=== PATIENT | male | born 1980 | race Two or more races ===

== ENCOUNTER 2023-01-21 11:50 | Emergency (ER) | payer OTHER ==
[~2023-01-21] VITALS: Ht 180.3 cm; Wt 158.8 kg
[2023-01-21 11:53] VITALS: BP 151/91; RESP 20; O2SAT 97
[2023-01-21] MEDS ORDERED: SODIUM CHLORIDE 0.9% 1,000 ML IVB ONE (12:00)
[2023-01-21 12:21] VITALS: PULSE 104
== END 2023-01-21 12:40 | disposition left against medical advice (07) ==
LOC: EDBD 11:50 → ER 11:50
DX: F15.10 Other stimulant abuse, uncomplicated (principal); I10 Essential (primary) hypertension; F17.210 Nicotine dependence, cigarettes, uncomplicated
CPT/HCPCS: 93005; 99283; J7030

== ENCOUNTER 2024-01-29 18:48 | Emergency (ER) | payer SELFPAY | END 2024-01-29 20:58 | disposition left against medical advice (07) | LOC: ER 18:48 | DX: L02.91 Cutaneous abscess, unspecified (principal); Z53.21 Procedure and treatment not carried out due to patient leaving prior to being seen by health care provider ==

== ENCOUNTER 2024-01-31 14:25 | Inpatient (IN) | payer MEDICAID, OTHER ==
[~2024-01-31] VITALS: Ht 180.3 cm; Wt 133.6 kg
[2024-01-31] MEDS: SODIUM CHLORIDE 0.9% 1,000 ML IV ONE ×2 (16:10→19:31)
[2024-01-31] MEDS: cefTRIAXone 1GM/50ML D5W 50 ML IV ONE (16:20)
[2024-01-31] MEDS: HYDROcodone-ACET 10/325MG TAB PO ONE (16:37)
[2024-01-31 16:39] LABS: Basophils # (auto) 0.1 10 ^3/uL (0-0.2); Basophils % (auto) 0.6 % (0.0-2.0); Eosinophils # (auto) 0.3 10 ^3/uL (0-0.8); Hematocrit 45.2 % (41.0-53.0); Hemoglobin 15.9 g/dL (13.5-17.5); Lymphocytes # (auto) 2.2 10 ^3/uL (0.4-5.4); Mean Corpuscular Hemoglobin 30.2 pg (28.0-32.0); Mean Corpuscular Hgb Conc. 35.3 g/dL (32.0-36.0); Mean Corpuscular Volume 85.5 fL (80.0-100.0); Monocytes # (auto) 0.9 10 ^3/uL (0-1.3); Monocytes % (auto) 9.6 % (0.0-12.0); Neutrophils # (auto) 6.1 10 ^3/uL (1.6-8.6); Neutrophils % (auto) 63.8 % (37.0-80.0); Nucleated Red Blood Cells % 0.1 %; Platelet Count (auto) 292 10^3/uL (140-450); Red Blood Cells 5.29 10^6/uL (4.5-5.90); Red Cell Distribution Width 13.4 % (11.8-14.3); White Blood Cell 9.6 10^3/uL (4.4-10.8)
[2024-01-31 16:45] LABS: Chloride 94 mmol/L (98-107); Potassium 4.1 mmol/L (3.5-5.1); Sodium 127 mmol/L (136-145)
[2024-01-31 16:46] LABS: Anion Gap 6 (5-15); Carbon Dioxide 27 mmol/L (20-31)
[2024-01-31 16:47] LABS: Calcium 9.5 mg/dL (8.7-10.4)
[2024-01-31 16:52] LABS: BUN/Creatinine Ratio 9.4 (10.0-20.0); Blood Urea Nitrogen 10 mg/dL (9-23)
[2024-01-31 16:57] LABS: Glucose 508 mg/dL (74-106)
[2024-01-31] MEDS: InsuLIN REG 1unit/0.01ml Soln (100units/ml) SC ONE (17:10)
[2024-01-31] MEDS: TETANUS-DIPTH-ACEL PERTUSSIS 0.5ML SYR Tdap IM ONE (17:10)
[2024-01-31] MEDS: IOHEXOL 300 MG/ML 100ML BOTTLE IJ ONE (17:56)
[2024-01-31 18:22] VITALS: PULSE 105; RESP 17; O2SAT 97
[2024-01-31 18:25] LABS: Alanine Aminotransferase 26 U/L (7-40); Lipase 77 U/L (12-53)
[2024-01-31] MEDS ORDERED: ACETAMINOPHEN 325 MG TAB PO PRN (19:00)
[2024-01-31] MEDS ORDERED: ONDANSETRON HCL 4 MG/2 ML VIAL IV PRN (19:00)
[2024-01-31] MEDS ORDERED: DOCUSATE SOD 100 MG CAP PO PRN (19:00)
[2024-01-31] MEDS ORDERED: MORPHINE SULFATE INJ 2 MG/ml SYRG IV PRN (19:00)
[2024-01-31] MEDS ORDERED: NITROGLYCERIN 0.4 MG SL TAB SL PRN (19:00)
[2024-01-31 19:30] VITALS: PULSE 79; RESP 16; O2SAT 100
[2024-01-31] MEDS: HYDROcodone-ACET 5/325MG TAB PO PRN (19:31)
[2024-01-31 20:31] LABS: Urine Bacteria None Seen /hpf (None Seen)
[2024-01-31 20:53] LABS: Urine Blood Negative /uL (Negative); Urine Clarity Clear (Clear); Urine Color Light-Yellow (Yellow); Urine Protein, UAD 2+ (Negative); Urine Urobilinogen Normal (Negative); Urine WBC 1 /hpf (0 - 3)
[2024-01-31 20:54] LABS: Amphetamine Screen, Urine Pos (NEGATIVE); Barbiturate Scree,Urine Neg (NEGATIVE); Benzodiazephine Screen, Urine Neg (NEGATIVE); Cocaine Screen, Urine Neg (NEGATIVE); Opiate Scree,Urine Neg (NEGATIVE)
[2024-01-31 20:55] LABS: Cannabinoid Screen, Urine Neg (NEGATIVE); Phencyclidine Screen, Urine Pos (NEGATIVE)
[2024-01-31 20:57] LABS: Urine Specific Gravity > 1.050 (1.001-1.035)
[2024-01-31 21:00] VITALS: BP 138/83; PULSE 105; RESP 20; TEMP 97.4; O2SAT 97
[2024-01-31 21:05] VITALS: RESP 16
[2024-01-31] MEDS: CLINDAMYCIN 600MG IV 50 ML IV SCH (21:39)
[2024-02-01 01:00] VITALS: BP 142/86; PULSE 107; RESP 17; TEMP 99; O2SAT 94
[2024-02-01 05:00] VITALS: BP 140/89; PULSE 100; RESP 18; TEMP 98.5; O2SAT 91
[2024-02-01 07:35] LABS: Alanine Aminotransferase 28 U/L (7-40); Albumin 3.6 g/dL (3.2-4.8); Alkaline Phosphatase 77 U/L (46-116); Aspartate Aminotransferase 28 U/L (13-40); Calcium 8.8 mg/dL (8.7-10.4); Carbon Dioxide 25 mmol/L (20-31); Chloride 97 mmol/L (98-107)
[2024-02-01 07:36] LABS: Anion Gap 9 (5-15); BUN/Creatinine Ratio 11.8 (10.0-20.0); Bilirubin, Total 0.7 mg/dL (0.2-1.0); Blood Urea Nitrogen 10 mg/dL (9-23); Glucose 330 mg/dL (74-106); Sodium 131 mmol/L (136-145); Total Protein 6.9 g/dL (5.7-8.2)
[2024-02-01 07:42] LABS: Basophils # (auto) 0 10 ^3/uL (0-0.2); Basophils % (auto) 0.5 % (0.0-2.0); Eosinophils # (auto) 0.4 10 ^3/uL (0-0.8); Eosinophils % (auto) 4.2 % (0.0-7.0); Hematocrit 42.1 % (41.0-53.0); Lymphocytes % (auto) 22.4 % (10.0-50.0); Mean Corpuscular Hemoglobin 30.3 pg (28.0-32.0); Mean Corpuscular Hgb Conc. 35.5 g/dL (32.0-36.0); Mean Corpuscular Volume 85.4 fL (80.0-100.0); Monocytes # (auto) 0.8 10 ^3/uL (0-1.3); Neutrophils # (auto) 5.6 10 ^3/uL (1.6-8.6); Neutrophils % (auto) 63.9 % (37.0-80.0); Nucleated Red Blood Cells % 0.1 %; Platelet Count (auto) 285 10^3/uL (140-450); Red Blood Cells 4.93 10^6/uL (4.5-5.90); Red Cell Distribution Width 13.5 % (11.8-14.3); White Blood Cell 8.7 10^3/uL (4.4-10.8)
[2024-02-01 09:00] VITALS: BP 141/88; PULSE 91; RESP 18; TEMP 97.9; O2SAT 95
[2024-02-01] MEDS ORDERED: DEXTROSE (50%) 50ML SYRG IV PRN ×2 (09:15→10:45)
[2024-02-01] MEDS: cefTRIAXone 1GM/50ML D5W 50 ML IV SCH (09:58)
[2024-02-01] MEDS: NICOTINE 14 MG/24HR TOPICAL PATCH TD SCH (10:00)
[2024-02-01] MEDS: INSULIN LANTUS (GLARGINE) 1 /0.01ml (100units/ml) SC ONE (10:09)
[2024-02-01] MEDS: SODIUM CHLORIDE 0.9% 1,000 ML IV SCH (10:46)
[2024-02-01] MEDS ORDERED: InsuLIN REG 1unit/0.01ml Soln (100units/ml) SC SCH ×2 (11:30→22:00)
[2024-02-01] MEDS ORDERED: ACCU-CHEK COMFORT CURVE STRIP VI SCH (11:30)
[2024-02-01 12:13] LABS: T3 Total 1.12 ng/mL (0.60-1.81)
[2024-02-01 12:14] LABS: Free T4 (Free Thyroxine) 1.08 ng/dL (0.89-1.76)
[2024-02-01] MEDS: InsuLIN REG 1unit/0.01ml Soln (100units/ml) SC SCH (12:23)
[2024-02-01] MEDS: ACCU-CHEK COMFORT CURVE STRIP VI SCH (12:23)
[2024-02-01 12:30] VITALS: BP 155/102; PULSE 86; RESP 19; TEMP 98; O2SAT 94
[2024-02-01] MEDS: ERGOCALCIFEROL 50,000 UNIT(1.25MG) CAP PO SCH (12:30)
[2024-02-01] MEDS: PIPERACILLIN-TAZOB 3.375GM 100 ML IV SCH (12:31)
[2024-02-01] MEDS ORDERED: VANCOMYCIN PER PHARMACY 0 MG IV SCH (14:00)
[2024-02-01] MEDS: METOCLOPRAMIDE HCL 5MG/ml INJ 2ml VIAL IV ONE (14:54)
[2024-02-01] MEDS ORDERED: MORPHINE SULFATE INJ 2 MG/ml SYRG IV PRN (15:00)
[2024-02-01] MEDS: VANCOMYCIN 1 GM/250 ML IV ONE (16:22)
[2024-02-01] MEDS: VANCOMYCIN 1GM/250ML 250 ML IV SCH (16:29)
[2024-02-01 17:00] VITALS: BP 154/100; PULSE 93; RESP 19; TEMP 99.3; O2SAT 98
[2024-02-01] MEDS: METOCLOPRAMIDE HCL 5MG/ml INJ 2ml VIAL IV SCH (18:06)
[2024-02-01 19:12] LABS: Partial Thromboplastin Time 25.9 SEC (24.5-34.5); Prothrombin Time 10.6 sec (9.3-11.8)
[2024-02-01] MEDS: MEROPENEM 1GM IVPB 50 ML IV SCH (19:46)
[2024-02-01 21:00] VITALS: BP 165/102; PULSE 89; RESP 21; TEMP 97.5; O2SAT 96
[2024-02-01] MEDS: hydrALAZINE HCL 20 MG/ML VL IV PRN (22:35)
[2024-02-02] VITALS (7 sets, daily range): BP systolic 141–162; BP diastolic 90–99; PULSE 86–113; RESP 16–21; TEMP 97.3–98.3; O2SAT 93–97
[2024-02-02] MEDS: MEROPENEM 1GM IVPB 50 ML IV SCH (03:54)
[2024-02-02] MEDS: INSULIN LANTUS (GLARGINE) 1 /0.01ml (100units/ml) SC SCH (05:53)
[2024-02-02] MEDS: ceFAZolin 1GM/50ML 50 ML IV ONE ×2 (07:24→07:42)
[2024-02-02 07:45] LABS: Anion Gap 7 (5-15); Carbon Dioxide 28 mmol/L (20-31); Chloride 99 mmol/L (98-107); Potassium 3.7 mmol/L (3.5-5.1); Sodium 134 mmol/L (136-145)
[2024-02-02 07:46] LABS: Calcium 8.8 mg/dL (8.7-10.4)
[2024-02-02 07:51] LABS: BUN/Creatinine Ratio 15.4 (10.0-20.0); Blood Urea Nitrogen 12 mg/dL (9-23)
[2024-02-02 08:00] LABS: Basophils # (auto) 0.1 10 ^3/uL (0-0.2); Basophils % (auto) 0.7 % (0.0-2.0); Eosinophils # (auto) 0.3 10 ^3/uL (0-0.8); Eosinophils % (auto) 3.1 % (0.0-7.0); Glucose 221 mg/dL (74-106); Hematocrit 41.1 % (41.0-53.0); Hemoglobin 14.6 g/dL (13.5-17.5); Lymphocytes # (auto) 2.1 10 ^3/uL (0.4-5.4); Lymphocytes % (auto) 25.8 % (10.0-50.0); Mean Corpuscular Hemoglobin 30.1 pg (28.0-32.0); Mean Corpuscular Hgb Conc. 35.6 g/dL (32.0-36.0); Mean Corpuscular Volume 84.6 fL (80.0-100.0); Monocytes # (auto) 0.8 10 ^3/uL (0-1.3); Monocytes % (auto) 9.3 % (0.0-12.0); Neutrophils # (auto) 4.9 10 ^3/uL (1.6-8.6); Neutrophils % (auto) 61.1 % (37.0-80.0); Platelet Count (auto) 297 10^3/uL (140-450); Red Blood Cells 4.86 10^6/uL (4.5-5.90); Red Cell Distribution Width 13.6 % (11.8-14.3); White Blood Cell 8.1 10^3/uL (4.4-10.8)
[2024-02-02] MEDS ORDERED: fentaNYL CITRATE 100 MCG/2 ML VL ONE (08:32)
[2024-02-02] MEDS ORDERED: MIDAZOLAM HCL 2MG/2ML 2ml VIAL (1mg/ml) ONE (08:33)
[2024-02-02] MEDS ORDERED: PROPOFOL 10 MG/ML 20 ML IV ONE ×2 (08:33→09:28)
[2024-02-02] MEDS: LIDOCAINE 1% HCL (LOCAL ANESTH.) INJ 20ML MDV ONE (09:09)
[2024-02-02] MEDS: LIDOCAINE W/ EPINEPHRINE 2% INJ 20ML VIAL ONE (09:10)
[2024-02-02] MEDS: ONDANSETRON HCL 4 MG/2 ML VIAL IV ONE (09:45)
[2024-02-02] MEDS: VANCOMYCIN 1.5GM/300ML 300 ML IV SCH (10:53)
[2024-02-02] MEDS ORDERED: SUCCINYLCHOLINE CHLORIDE 20 MG/ML 10ML VIAL IV ONE (18:33)
[2024-02-03] VITALS (8 sets, daily range): BP systolic 122–159; BP diastolic 60–105; PULSE 69–97; RESP 16–21; TEMP 97.3–98.6; O2SAT 94–99
[2024-02-03 10:57] LABS: Hepatitis B Surface Antigen Negative (Negative)
[2024-02-03 11:38] LABS: Hepatitis C Antibody Reactive (Negative)
[2024-02-03] MEDS ORDERED: CLINDAMYCIN 600MG IV 50 ML IV SCH (14:00)
[2024-02-03 14:35] LABS: Chloride 101 mmol/L (98-107); Potassium 3.9 mmol/L (3.5-5.1); Sodium 132 mmol/L (136-145)
[2024-02-03 14:36] LABS: Anion Gap 5 (5-15); Calcium 9.2 mg/dL (8.7-10.4); Carbon Dioxide 26 mmol/L (20-31)
[2024-02-03 14:41] LABS: BUN/Creatinine Ratio 14.3 (10.0-20.0); Blood Urea Nitrogen 11 mg/dL (9-23); Glucose 282 mg/dL (74-106)
[2024-02-03] MEDS: cefTRIAXone 1GM/50ML D5W 50 ML IV SCH (22:22)
[2024-02-03] MEDS: MUPIROCIN 2% OINT 15gm or 22gm FOR MRSA NARES EACHNOSTRI SCH (22:35)
[2024-02-04] VITALS (8 sets, daily range): BP systolic 136–162; BP diastolic 88–98; PULSE 72–88; RESP 12–20; TEMP 97.7–98.9; O2SAT 94–100
[2024-02-04 07:30] LABS: Basophils # (auto) 0.1 10 ^3/uL (0-0.2); Basophils % (auto) 0.7 % (0.0-2.0); Eosinophils # (auto) 0.4 10 ^3/uL (0-0.8); Eosinophils % (auto) 4.9 % (0.0-7.0); Hematocrit 40.3 % (41.0-53.0); Hemoglobin 14.5 g/dL (13.5-17.5); Lymphocytes # (auto) 2.4 10 ^3/uL (0.4-5.4); Lymphocytes % (auto) 30.1 % (10.0-50.0); Mean Corpuscular Hemoglobin 30.6 pg (28.0-32.0); Mean Corpuscular Hgb Conc. 35.9 g/dL (32.0-36.0); Mean Corpuscular Volume 85.1 fL (80.0-100.0); Monocytes # (auto) 0.6 10 ^3/uL (0-1.3); Monocytes % (auto) 7.1 % (0.0-12.0); Neutrophils # (auto) 4.5 10 ^3/uL (1.6-8.6); Neutrophils % (auto) 57.2 % (37.0-80.0); Nucleated Red Blood Cells % 0.1 %; Platelet Count (auto) 335 10^3/uL (140-450); Red Blood Cells 4.73 10^6/uL (4.5-5.90); Red Cell Distribution Width 13.5 % (11.8-14.3); White Blood Cell 7.8 10^3/uL (4.4-10.8)
[2024-02-04 07:33] LABS: Chloride 104 mmol/L (98-107); Potassium 3.7 mmol/L (3.5-5.1)
[2024-02-04 07:34] LABS: Calcium 9.3 mg/dL (8.7-10.4); Sodium 137 mmol/L (136-145)
[2024-02-04 07:35] LABS: Anion Gap 8 (5-15); Carbon Dioxide 25 mmol/L (20-31)
[2024-02-04 07:40] LABS: BUN/Creatinine Ratio 14.9 (10.0-20.0); Blood Urea Nitrogen 11 mg/dL (9-23)
[2024-02-04 07:41] LABS: Glucose 145 mg/dL (74-106)
[2024-02-05 01:00] VITALS: BP 152/92; PULSE 83; RESP 20; TEMP 97.7; O2SAT 95
[2024-02-05 05:00] VITALS: BP 147/93; PULSE 76; RESP 20; TEMP 98; O2SAT 95
[2024-02-05 06:42] LABS: Basophils # (auto) 0 10 ^3/uL (0-0.2); Basophils % (auto) 0.6 % (0.0-2.0); Eosinophils # (auto) 0.4 10 ^3/uL (0-0.8); Eosinophils % (auto) 5.2 % (0.0-7.0); Hemoglobin 14.4 g/dL (13.5-17.5); Lymphocytes # (auto) 2.5 10 ^3/uL (0.4-5.4); Lymphocytes % (auto) 33.3 % (10.0-50.0); Mean Corpuscular Hgb Conc. 35.2 g/dL (32.0-36.0); Mean Corpuscular Volume 85.4 fL (80.0-100.0); Monocytes # (auto) 0.6 10 ^3/uL (0-1.3); Monocytes % (auto) 8.2 % (0.0-12.0); Neutrophils # (auto) 3.9 10 ^3/uL (1.6-8.6); Neutrophils % (auto) 52.7 % (37.0-80.0); Nucleated Red Blood Cells % 0.1 %; Platelet Count (auto) 371 10^3/uL (140-450); Red Cell Distribution Width 13.4 % (11.8-14.3); White Blood Cell 7.4 10^3/uL (4.4-10.8)
[2024-02-05 06:50] LABS: Chloride 104 mmol/L (98-107); Potassium 3.7 mmol/L (3.5-5.1); Sodium 137 mmol/L (136-145)
[2024-02-05 06:51] LABS: Anion Gap 7 (5-15); Calcium 9.3 mg/dL (8.7-10.4); Carbon Dioxide 26 mmol/L (20-31)
[2024-02-05 06:56] LABS: BUN/Creatinine Ratio 15.4 (10.0-20.0); Blood Urea Nitrogen 12 mg/dL (9-23); Glucose 147 mg/dL (74-106)
[2024-02-05 08:30] VITALS: PULSE 81; RESP 20; O2SAT 95
[2024-02-05 09:00] VITALS: BP 157/93; PULSE 81; RESP 20; TEMP 98; O2SAT 92
[2024-02-05 13:00] VITALS: BP 140/87; PULSE 80; RESP 22; TEMP 98; O2SAT 95
[2024-02-05] MEDS ORDERED: LEVO500T91 PO (14:25)
[2024-02-05] MEDS ORDERED: INSUINJ37 SC (14:25)
[2024-02-05 17:04] VITALS: BP 135/88; PULSE 76; RESP 20; TEMP 97.8; O2SAT 95
== END 2024-02-05 18:34 | disposition home or self-care (01) | DRG 383 ==
LOC: ER 14:28 → OVERFLOW 18:52 → WEST WING 21:05
PROVIDERS: ADMIT Internal Medicine; ATTEND Internal Medicine
PROC: 0X973ZZ Drainage of Left Upper Extremity, Percutaneous Approach (ICD-10-PCS; principal; 2024-02-02 08:32)
DX: L03.114 Cellulitis of left upper limb (principal); E87.1 Hypo-osmolality and hyponatremia; E11.65 Type 2 diabetes mellitus with hyperglycemia; L02.414 Cutaneous abscess of left upper limb; F15.10 Other stimulant abuse, uncomplicated; E66.01 Morbid (severe) obesity due to excess calories; I10 Essential (primary) hypertension; F17.210 Nicotine dependence, cigarettes, uncomplicated; Z68.38 Body mass index [BMI] 38.0-38.9, adult; Z80.3 Family history of malignant neoplasm of breast; Z79.899 Other long term (current) drug therapy; Z79.4 Long term (current) use of insulin; F16.10 Hallucinogen abuse, uncomplicated; Z80.41 Family history of malignant neoplasm of ovary
CPT/HCPCS: 36415; 71045; 73206; 80048; 80053; 80202; 80307; 81001; 82010; 82306; 82607; 82962; 83036; 83605; 83690; 84439; 84443; 84460; 84480; 85025; 85610; 85730; 86803; 87040; 87070; 87075; 87076; 87077; 87081; 87186; 87205; 87340; 90715; 96365; 96372; G0378; J0330; J1815; J2003; J2185; J2250; J2543; J2704; J3490